=== PATIENT | female | born 1950 | race Caucasian/White ===

== ENCOUNTER → 2017-01-13 | Outpatient (CLI) | payer OTHER ==
[~2017-01-13] MED LIST: ALLEGRA180 MG PO; ASPIRIN EC81 M1 PO; CALCIUM + D 6001 TA1 PO; CRANBERRY TABL1 EACH PO; DIOVAN160 MG PO; FELDENE10 MG PO; GRAPE SEED EXT PO; MULTI-DAY VITAM1 TAB PO; NEXIUM PO; PAROXETINE HCL20 MG PO; TRIAMTERENE-HC1 EACH PO; VIT C PO; VOLTAREN PO; WELCHOL3.75 GM PO
--- NOTE | ~2017-01-13 | US77 ---
[facility] A Service of [facility] & [facility] RADIOLOGY TEXT RESULTS PATIENT: KYAW HEREDIA LOCATION: [place] : [birth year] UNIT #: [id number] AGE: [address]: Matt Gerard MD SEX: F ORDER DR: [id number] [facility] [place] [address] [place], [place] [address] [id number] O MR#: [id number] Acc #: [id number] NAME: KYAW HEREDIA : 1950 SEX: F STUDY DATE/TIME: 01/13/2017 12:32 UNIT: [facility] ROOM: STUDY DESCRIPTION: US Kidney Bilateral Complete Attending Physician: Matt Gerard M.D. Referring Physician: Matt Gerard M.D. Ordering Physician: Matt Gerard M.D. Primary Care Physician: Radha Camp M.D. MEDICAL IMAGING REPORT This report is preliminary unless electronic signature is present EXAM Renal ultrasound, 01/13. INDICATION Chronic kidney disease, stage 3. FINDINGS Sonographic evaluation performed of the kidneys in multiple planes. Comparison made with 02/22/2015. Right kidney measures 10.9 cm in ylgb-ht-lmgs length. Left kidney measures 10.4 cm in leqz-ll-vura length. Both are morphologically normal and nonobstructed. The bladder is normal. There is a potential stone versus cortical calcification in the left kidney. This is probably in the upper pole. IMPRESSION 1. Potential stone in the upper pole of the left kidney. 2. The kidneys otherwise appear normal and nonobstructed. Dictated by... Lazarus Colunga Jr., M.D. THIS IS AN ELECTRONICALLY VERIFIED REPORT Lazarus Colunga Jr., M.D. at 01/14/2017 5:53 AM TEX/antonia TD: 01/13/2017 18:31 JOB #: [id number] MEDICAL IMAGING REPORT Page 1 of 1 COPY
== END | disposition home or self-care (01) ==
LOC: CGUS 11:39
DX: N18.3 Chronic kidney disease, stage 3 (moderate) (principal); N20.0 Calculus of kidney
CPT/HCPCS: 76770

== ENCOUNTER → 2017-04-13 | Outpatient (CLI) | payer OTHER ==
--- NOTE | ~2017-04-13 | MY29 ---
[facility] A Service of [facility] RADIOLOGY TEXT RESULTS PATIENT: KYAW HEREDIA LOCATION: [facility] : 48 UNIT #: [id number] AGE: [address]: Sherry Sims APRN SEX: F ORDER DR: [id number] [facility] [address] [place], [place] [address] [id number] O MR#: [id number] Acc #: [id number] NAME: KYAW HEREDIA : 1950 SEX: F STUDY DATE/TIME: 04/13/2017 12:21 UNIT: [facility] ROOM: STUDY DESCRIPTION: [facility] SCREENING W/ CAD BILAT Attending Physician: Sherry Sims A.P.R.N. Referring Physician: Sherry Sims A.P.R.N. Ordering Physician: Sherry Sims A.P.R.N. Primary Care Physician: Radha Camp M.D. MEDICAL IMAGING REPORT This report is preliminary unless electronic signature is present EXAM Bilateral digital screening mammogram with CAD. HISTORY Routine screening. No current complaints. Family history of breast cancer in an aunt. COMPARISON STUDIES 02/03/2016 and 05/29/2014. TECHNIQUE MLO and CC digital views of each breast were obtained. The exam was reviewed with FDA-approved CAD device. FINDINGS There are scattered fibroglandular densities present. There are no masses or abnormal calcifications. There has been no change. IMPRESSION No change. No evidence malignancy. BIRADS category 1N. Patients over the age of 40 are entered into a reminder system with target due date for the next mammogram. A result letter will also be sent to the patient. BIRADS: 1 Negative. Dictated by... Mauricio Pulliam M.D. [facility] A Service [facility] RADIOLOGY TEXT RESULTS PATIENT: KYAW HEREDIA LOCATION: [facility] : 48 UNIT #: [id number] AGE: [address]: Sherry Sims APRN SEX: F ORDER DR: THIS IS AN ELECTRONICALLY VERIFIED REPORT Mauricio Pulliam M.D. at 04/13/2017 10:08 PM Rodolfo TD: 04/13/2017 16:00 JOB #: [id number] MEDICAL IMAGING REPORT Page 1 of 1 COPY
== END | disposition home or self-care (01) ==
LOC: CWCC 11:47
DX: Z12.31 Encounter for screening mammogram for malignant neoplasm of breast (principal); Z80.3 Family history of malignant neoplasm of breast
CPT/HCPCS: G0202